=== PATIENT | male | born 1985 | race Caucasian/White ===

== ENCOUNTER 2016-11-11 08:40 | Emergency (ER) | payer OTHER ==
[~2016-11-11] VITALS: Ht 193 cm; Wt 93.0 kg
[2016-11-12] MEDS ORDERED: ATIVAN1 MG PO (11:41)
[2016-11-12] MEDS ORDERED: PAXIL20 MG PO (11:41)
== END 2016-11-11 09:25 | disposition home or self-care (01) ==
LOC: ED 08:40
DX: Z00.8 Encounter for other general examination (principal)

== ENCOUNTER 2016-11-12 09:50 | Emergency (ER) | payer OTHER ==
[~2016-11-12] VITALS: Ht 193 cm; Wt 93.0 kg
[2016-11-12] MEDS ORDERED: PAXIL20 MG PO (11:41)
[2016-11-12] MEDS ORDERED: ATIVAN1 MG PO (11:41)
--- NOTE | 2016-11-12 20:12 | EKG ---
[facility] [address] [place] [address] Signed Normal sinus rhythm with sinus arrhythmia Normal ECG No previous ECGs available Confirmed by SABA GARCIA MD ([id number] on 11/12/2016 8:12:33 PM Electronically Signed By: SABA GARCIA MD 11/12/162011 PATIENT NAME: WELLINGTON MELTON Electrocardiogram DATE OF : 83 PHYSICIAN: SABA GARCIA MD REPORT #: [id number] REPORT IS CONFIDENTIAL AND NOT TO BE RELEASED WITHOUT AUTHORIZATION
== END 2016-11-12 11:51 | disposition home or self-care (01) ==
LOC: ED 09:50
DX: F41.0 Panic disorder [episodic paroxysmal anxiety] (principal); F41.1 Generalized anxiety disorder; F17.200 Nicotine dependence, unspecified, uncomplicated
CPT/HCPCS: 36415; 80053; 84436; 84443; 84479; 85025; 93005; 93010; 96372; 99283; J2060